=== PATIENT | female | born 1960 | race Caucasian/White ===

== ENCOUNTER → 2017-05-14 | Outpatient (CLI) | payer OTHER ==
[~2017-05-14] MED LIST: ALEVE220 M2 PO; HYDROCHLOROTHIA25 MG PO; NASACORT10.8 ML BOTH NARES; PRILOSEC10 MG PO; PRINIVIL10 MG PO
== END | disposition home or self-care (01) ==
LOC: AMB 09:13
PROC: 0HB1XZZ Excision of Face Skin, External Approach (ICD-10-PCS; principal; 2017-05-14)
DX: L98.8 Other specified disorders of the skin and subcutaneous tissue (principal); I82.890 Acute embolism and thrombosis of other specified veins
CPT/HCPCS: 88305